=== PATIENT | female | born 1980 | race Two or more races ===

== ENCOUNTER 2018-11-04 18:41 | Emergency (ER) | payer OTHER ==
[2018-11-04] MEDS ORDERED: IBUPROFEN 600 MG TABLET PO ONE (20:26)
[2018-11-04] MEDS ORDERED: ACETAMINOPHEN 325 MG TABLET PO ONE (20:28)
--- NOTE | 2018-11-04 20:32 | ER Document Report ---
ED Medical Screen (RME) - General Chief Complaint: Chest Pain Stated Complaint: CHEST PAIN Time Seen by Provider: 11/04/18 20:25 Notes: Patient is a 38-year-old female who presents to the emergency department with a chief complaint of chest pain. She has been having on and off chest pain for the past week. She describes her pain as a crushing pain that wraps around her back. She was seen at [facility], where she had an x-ray done but no interventions were done for her chest pain. She also states she is short of breath. She denies any fevers. TRAVEL OUTSIDE OF THE [place] IN LAST 30 DAYS: No - Related Data Allergies/Adverse Reactions: No Known Allergies Allergy (Unverified 11/04/18 20:16) Past Medical History Renal/ Medical History: Denies: Hx Peritoneal Dialysis Past Surgical History: Reports: Hx Hysterectomy Physical Exam - Vital signs Vitals: Temp Pulse Resp BP Pulse Ox 98.6 F 82 16 122/86 H 98 11/04/18 19:01 11/04/18 19:01 11/04/18 19:01 11/04/18 19:01 11/04/18 19:01 - Respiratory Breath sounds: Normal - Cardiovascular Rhythm: Regular Murmur: No Notes: Pain reproducible upon palpation. Course - Re-evaluation Re-evalutation: 11/04/18 20:34 Patient's pain is reproducible upon palpation. - Vital Signs Vital signs: Temp Pulse Resp BP Pulse Ox 98.4 F 82 16 105/73 98 11/05/18 00:03 11/04/18 19:01 11/05/18 00:03 11/05/18 00:03 11/05/18 00:03 - Laboratory Result Diagrams: 11/04/18 21:13 11/04/18 21:13 Laboratory results interpreted by me: 11/04/18 21:13 Seg Neutrophils % 39.3 L Lymphocytes % 51.3 H Doctor's Discharge - Discharge Clinical Impression: Chest pain Condition: Good Disposition: HOME, SELF-CARE Additional Instructions: We did blood work looking for evidence of blood clots in your lungs. This blood testing was negative. We also did blood work looking at your heart. This testing was normal as well. I suspect your pain is either related to pleurisy or a strain along the intercostal muscles of the rib cage. Both of these will get worse with taking a deep breath or coughing or sneezing. They will also get worse with certain movements. This coincides with the symptoms you are having. I have prescribed a medicine called Toradol. Do not take other NSAID medicaito ns such as Aspirin, Motrin, Ibuprofen, Aleve, or Advil when taking Toradol. It is okay to take Tylenol. Prescriptions: Ketorolac Tromethamine [Toradol 10 mg Tablet] 10 mg PO Q8HP PRN #12 tablet PRN Reason: Referrals: DOMINIC ANTHONY MD [NO LOCAL MD] - 11/09/18
--- NOTE | 2018-11-04 21:15 | RADIOLOGY REPORT (SQ) ---
XR CHEST 1 VIEW HISTORY: Chest pain. COMPARISON: None. FINDINGS: The cardiomediastinal silhouette is unremarkable. The lungs are clear. No pleural effusion or pneumothorax is identified. IMPRESSION: No acute cardiopulmonary abnormality.
[2018-11-04 21:30] LABS: ABSOLUTE EOSINOPHILS # (AUTO) 0.3 10^3/uL (0.0-0.6); ABSOLUTE LYMPHOCYTES (AUTO) 4.1 10^3/uL (0.5-4.7); ABSOLUTE MONOCYTES (AUTO) 0.5 10^3/uL (0.1-1.4); ABSOLUTE NEUT (AUTO) 3.2 10^3/uL (1.7-8.2); BASOPHILS % (AUTO) 0.4 % (0-2); EOSINOPHILS % (AUTO) 3.3 % (0-6); HEMATOCRIT 41.8 % (36.0-47.0); LYMPHOCYTES % (AUTO) 51.3 % (13-45); MEAN CORPUSCULAR HGB CONC 33.6 g/dL (32.0-36.0); MEAN CORPUSCULAR VOLUME 83 fl (80-97); MONOCYTES % (AUTO) 5.7 % (3-13); PLATELET COUNT 252 10^3/uL (150-450); RED BLOOD COUNT 5.01 10^6/uL (3.72-5.28); RED CELL DISTRIBUTION WIDTH 13.6 % (11.5-14.0); SEGMENTED NEUTROPHILS % (AUTO) 39.3 % (42-78); TOTAL CELLS COUNTED % (AUTO) 100 %
--- NOTE | 2018-11-04 22:04 | ER Document Report ---
ED General - General Chief Complaint: Chest Pain Stated Complaint: CHEST PAIN Time Seen by Provider: 11/04/18 20:25 Notes: Patient is a 30-year-old female who presents because she has been having intermittent chest pain. Says pain is worse with coughing or moving. She went to [facility]. There they did blood work and told everything was fine except for she had evidence of some pleural thickening on chest x-ray and therefore they encouraged [place] for reevaluation and possible CT scan. Patient said she was concerned because I told her she needed a CT scan but that one was not done and therefore she came to the ER for reevaluation of her symptoms. She denies any fevers. No vomiting. No diarrhea. No leg pain or leg swelling. No recent travel outside the country. No recent long trips. TRAVEL OUTSIDE OF THE [place] IN LAST 30 DAYS: No - Related Data Allergies/Adverse Reactions: No Known Allergies Allergy (Unverified 11/04/18 20:16) Past Medical History - Social History Smoking Status: Never Smoker Frequency of alcohol use: None Drug Abuse: None Family History: Reviewed & Not Pertinent Patient has suicidal ideation: No Patient has homicidal ideation: No Renal/ Medical History: Denies: Hx Peritoneal Dialysis Past Surgical History: Reports: Hx Hysterectomy Review of Systems - Review of Systems Notes: My Normal Review Basic REVIEW OF SYSTEMS: CONSTITUTIONAL : Denies fever, chills, or sweats. Denies recent illness. EENT: Denies eye, ear, throat, or mouth pain or symptoms. Denies nasal or sinus congestion. CARDIOVASCULAR: Chest pain RESPIRATORY: Denies cough, cold, or chest congestion. Denies shortness of breath, difficulty breathing, or wheezing. GASTROINTESTINAL: Denies abdominal pain. Denies nausea, vomiting, or diarrhea. GENITOURINARY: Denies difficulty urinating, painful urination, burning, frequency, or blood in urine. MUSCULOSKELETAL: Denies neck or back pain or joint pain or swelling. SKIN: Denies rash or skin lesions. NEUROLOGICAL: Denies altered mental status or loss of consciousness. Denies headache. Denies weakness or paralysis or loss of use of either side. Denies problems with gait or speech. Denies sensory or motor loss. ALL OTHER SYSTEMS REVIEWED AND NEGATIVE. Physical Exam - Vital signs Vitals: Temp Pulse Resp BP Pulse Ox 98.6 F 82 16 122/86 H 98 11/04/18 19:01 11/04/18 19:01 11/04/18 19:01 11/04/18 19:01 11/04/18 19:01 - Notes Notes: General Appearance: Well nourished, alert, cooperative, no acute distress, no obvious discomfort. Well-appearing Vitals: reviewed, See vital signs table. Head: no swelling or tenderness to the head Eyes: PERRL, EOMI, Conjuctiva clear Mouth: No decreasd moisture Chest wall: Some mildly reproducible pain to palpation of chest wall. Lungs: No wheezing, No rales, No rhonci, No accessory muscle use, good air exchange bilaterally. Heart: Normal rate, Regular rythm, No murmur, no rub Abdomen: Normal BS, soft, No rigidity, No abdominal tenderness, No guarding, no rebound, no abdominal masses, no organomegaly Extremities: strength 5/5 in all extremities, good pulses in all extremities, no swelling or tenderness in the extremities, no edema. Skin: warm, dry, appropriate color, no rash Neuro: speech clear, oriented x 3, normal affect, responds appropriately to ques tions. Course - Re-evaluation Re-evalutation: 11/04/18 22:03 EKG is reviewed and interpreted by me. EKG shows sinus rhythm with rate of [address] segment elevation or depression. No ischemic T wave inversions. KS interval, QRS duration, QT intervals are within normal range. Old EKG available for comparison. 11/05/18 09:22 I did obtain a d-dimer. Patient is low risk for PE. Her vital signs are completely normal. She has not had any recent long road trips. She is not having a pain or leg swelling. D-dimer is negative. Patient looks well. I suspect she either has pleurisy or may be some muscular skeletal component to her chest pain. I encouraged her to keep her appointment with follow-up with her doctor on Wednesday. I encouraged her to return to ER if she has fevers, difficulty breathing, worsening pain, or feels unwell. Patient agrees with plan and will be discharged home. Dictation of this chart was performed using voice recognition software; therefore, there may be some unintended grammatical errors. - Vital Signs Vital signs: Temp Pulse Resp BP Pulse Ox 98.4 F 82 16 105/73 98 11/05/18 00:03 11/04/18 19:01 11/05/18 00:03 11/05/18 00:03 11/05/18 00:03 - Laboratory Result Diagrams: 11/04/18 21:13 11/04/18 21:13 Laboratory results interpreted by me: 11/04/18 21:13 Seg Neutrophils % 39.3 L Lymphocytes % 51.3 H Discharge - Discharge Clinical Impression: Chest pain Qualifiers: Chest pain type: unspecified Qualified Code(s): R07.9 - Chest pain, unspecified Condition: Good Disposition: HOME, SELF-CARE Additional Instructions: We did blood work looking for evidence of blood clots in your lungs. This blood testing was negative. We also did blood work looking at your heart. This testing was normal as well. I suspect your pain is either related to pleurisy or a strain along the intercostal muscles of the rib cage. Both of these will g et worse with taking a deep breath or coughing or sneezing. They will also get worse with certain movements. This coincides with the symptoms you are having. I have prescribed a medicine called Toradol. Do not take other NSAID medicaitons such as Aspirin, Motrin, Ibuprofen, Aleve, or Advil when taking Toradol. It is okay to take Tylenol. Prescriptions: Ketorolac Tromethamine [Toradol 10 mg Tablet] 10 mg PO Q8HP PRN #12 tablet PRN Reason: Referrals: DOMINIC ANTHONY MD [NO LOCAL MD] - 11/09/18
[2018-11-04 22:41] LABS: ANION GAP 9 (5-19); BLOOD UREA NITROGEN 14 mg/dL (7-20); CALCIUM 9.9 mg/dL (8.4-10.2); CARBON DIOXIDE 27 mmol/L (22-30); CHLORIDE 104 mmol/L (98-107); GLUCOSE 96 mg/dL (75-110); POTASSIUM 4.3 mmol/L (3.6-5.0); SODIUM 140.2 mmol/L (137-145)
--- NOTE | 2018-11-04 23:02 | EKG REPORT ---
SEVERITY:- NORMAL ECG - SINUS RHYTHM : Confirmed by: Юлия Murillo MD 04-Nov-2018 23:02:11
[2018-11-04] MEDS ORDERED: KETOROLAC TROMETHAMINE 10 MG TABLET PO ONE (23:55)
[2018-11-05 00:07] VITALS: BP 105/73
== END 2018-11-05 00:07 | disposition home or self-care (01) ==
LOC: ER 18:41
DX: R07.9 Chest pain, unspecified (principal)
CPT/HCPCS: 93005; 99285; 36415; 85025; 80048; 84484; 85379; 71045; 93010; J3490

== ENCOUNTER → 2018-11-09 | Outpatient (CLI) | payer OTHER ==
--- NOTE | 2018-11-09 12:18 | RADIOLOGY REPORT (SQ) ---
EXAM DESCRIPTION: HIP BILATERAL COMPLETED DATE/TIME: 11/09/2018 11:51 am REASON FOR STUDY: HIP PAIN (M25.559) J94.9 PLEURAL CONDITION, UNSPECIFIED M25.559 PAIN IN UNSPECIF IED HIP COMPARISON: None. NUMBER OF VIEWS: Two views. TECHNIQUE: AP pelvis and additional frog-leg view of the right and left hips. LIMITATIONS: None. FINDINGS: MINERALIZATION: Normal. PRIMARY HIP: No fracture or dislocation. No worrisome bone lesions. No significant degenerative tigre nge. OPPOSITE HIP: No fracture or dislocation. No worrisome bone lesions. No significant degenerative ch flori. PUBIS AND ISCHIUM: No fracture. PELVIS: No fracture. SACRUM: No fracture or dislocation. No worrisome bone lesions. LOWER LUMBAR SPINE: No fracture or dislocation. No worrisome bone lesions. No significant disc disea se. SOFT TISSUES: No significant findings. Scattered pelvic phleboliths. OTHER: No other significant finding. IMPRESSION: NEGATIVE STUDY OF THE RIGHT AND LEFT HIPS AND PELVIS. NO RADIOGRAPHIC EVIDENCE OF ACUTE INJURY. TECHNICAL DOCUMENTATION: JOB ID: [id number] [employer]- All Rights Reserved Reading location - IP/workstation name: [email or web address]
== END ==
LOC: RAD 10:53
PROVIDERS: ATTEND Internal Medicine
DX: J94.9 Pleural condition, unspecified (principal); M25.559 Pain in unspecified hip
CPT/HCPCS: 73522

== ENCOUNTER → 2018-11-11 | Outpatient (CLI) | payer OTHER ==
--- NOTE | 2018-11-11 08:36 | RADIOLOGY REPORT (SQ) ---
EXAM DESCRIPTION: CT CHEST WITH COMPLETED DATE/TIME: 11/11/2018 8:09 am REASON FOR STUDY: PLEURAL CONDITION, UNSPEC (J94.9) J94.9 PLEURAL CONDITION, UNSPECIFIED COMPARISON: None. TECHNIQUE: CT scan of the chest performed using helical scanning technique with dynamic intravenous contrast injection. Images reviewed with lung, soft tissue and bone windows. Reconstructed coronal and sagittal MPR and MIP images reviewed. All images stored on PACS. All CT scanners at this facility use dose modulation, iterative reconstruction, and/or weight based d osing when appropriate to reduce radiation dose to as low as reasonably achievable (ALARA). [facility]: Dose Right [facility]: CareDose [facility]: Dose Right [facility]: Teradose 4D [facility]: WorkMeIn CONTRAST TYPE AND DOSE: contrast/concentration: Isovue 350.00 mg/ml; Total Contrast Delivered: 80.0 ml; Total Saline Delivered: 55.0 ml RENAL FUNCTION: BUN 14 creatinine 0.77. RADIATION DOSE: CT Rad equipment meets quality standard of care and radiation dose reduction techniq ues were employed. CTDIvol: 17.5 mGy. DLP: 638 mGy-cm. . LIMITATIONS: None. FINDINGS: LUNGS AND PLEURA: No opacities, nodules, masses. No pneumothorax. No effusions. HILAR AND MEDIASTINAL STRUCTURES: No identified masses or abnormal nodes. HEART AND VASCULAR STRUCTURES: No aneurysm or dissection. No central pulmonary emboli. No pericardi al effusion. HARDWARE: None in the chest. UPPER ABDOMEN: Fatty infiltration of the liver. Limited exam. THYROID AND OTHER SOFT TISSUES: No masses. No adenopathy. BONES: No significant finding. OTHER: No other significant finding. IMPRESSION: NORMAL CT OF THE CHEST WITH IV CONTRAST. TECHNICAL DOCUMENTATION: JOB ID: [id number] Quality ID # [id number]: Final reports with documentation of one or more dose reduction techniques (e.g., Au tomated exposure control, adjustment of the mA and/or kV according to patient size, use of iterative reconstruction technique) 2010 [employer]- All Rights Reserved Reading location - IP/workstation name: [email or web address]
== END ==
LOC: RAD 07:40
PROVIDERS: ATTEND Internal Medicine
DX: J94.9 Pleural condition, unspecified (principal); M25.559 Pain in unspecified hip
CPT/HCPCS: 71260

== ENCOUNTER → 2019-03-24 | Outpatient (CLI) | payer OTHER ==
--- NOTE | 2019-03-24 12:11 | RADIOLOGY REPORT (SQ) ---
EXAM DESCRIPTION: U/S NON-OB PELVIS W/O DOP COMPLETED DATE/TIME: 03/24/2019 11:58 am REASON FOR STUDY: LOWER ABDOMINAL PAIN R10.30 LOWER ABDOMINAL PAIN, UNSPECIFIED COMPARISON: None. TECHNIQUE: Dynamic and static grayscale images acquired of the pelvis via transabdominal approach an d recorded on PACS. Additional selected color Doppler and spectral images recorded. LIMITATIONS: None. FINDINGS: UTERUS: The patient has had prior partial hysterectomy. No uterine tissue is identified. ENDOMETRIAL STRIPE: Prior hysterectomy. CERVIX: Prior hysterectomy. RIGHT OVARY AND DOPPLER: There is a 3.7 x 3.3 x 2.4 cm cystic structure in the right adnexae. Possib ly ovarian cyst. LEFT OVARY AND DOPPLER: Not visualized. FREE FLUID: None noted. OTHER: No other significant finding. MEASUREMENTS: RIGHT OVARY: 6.2 x 3.7 x 3.6 cm. LEFT OVARY: Not visualized. IMPRESSION: Right adnexal cystic lesion most likely ovarian in origin. This is measured 3.7 x 3.3 x 2.4 cm. Left ovary an uterus are not identified. TECHNICAL DOCUMENTATION: JOB ID: [id number] [email or web address]- All Rights Reserved Rev-03/18 Reading location - IP/workstation name: [email or web address]
== END ==
LOC: RAD 10:55
PROVIDERS: ATTEND Internal Medicine
DX: R10.30 Lower abdominal pain, unspecified (principal)
CPT/HCPCS: 76856

== ENCOUNTER 2019-06-12 15:03 | Emergency (ER) | payer OTHER ==
--- NOTE | 2019-06-12 17:04 | ER Document Report ---
ED Medical Screen (RME) - General Chief Complaint: Chest Pain Stated Complaint: CHEST PAIN Time Seen by Provider: 06/12/19 16:57 Primary Care Provider: VÍCTOR BARRETT MD [Primary Care Provider] - Follow up as needed Notes: HPI: 39-year-old female here for chest pain that radiates to her back intermittently and becoming more persistent, last week. History of pleurisy in the past and symptoms feel similar. She also states sometimes the pain radiates to her left shoulder. She has some shortness of breath with the pain gets severe and pain with deep breathing. She does have significant family history of cardiac disease with her mother having SC around 55. She has had a hysterectomy. She also endorses a low-grade fever, nausea. No recent stress test. Pt denies any prior personal cardiac history. no syncope. no palpitations. no hx of mi, cva, tia, CHF, or cad. no ripping or tearing sensation. denies any blood thinners. No prior history of blood clots. No recent long distance travel/immobilization, recent surgery, exogenous estrogen use, hemoptysis, history of cancer, or calf pain/swelling. No prior history of arrhythmias. ROS neg to include 10 systems, unless mentioned in the hpi. PE:>>>> PHYSICAL_EXAM: GENERAL_APPEARANCE: well_nourished, alert, cooperative, no_acute_distress, mild_obvious_discomfort. pleasant, middle-aged female, smiling, speaking in full sentences, in no sign of pain or resp distress, VITALS: reviewed, see vital signs table. HEAD: no_swelling\tenderness on the head. normocephalic. atraumatic. no irwin signs. no raccoons eyes. EYES: PERRL, EOMI, conjunctiva_clear. NOSE: no_nasal_discharge. MOUTH: (-)decreased moisture. THROAT: no_tonsilar_inflammation, no_airway_obstruction. no_lymphadenopathy NECK: supple, no_neck_tenderness, full rom. full strength. no meningeal signs. no sign of central cord syndrome. BACK: no midline back_tenderness. There is tenderness palpation over the left trapezius and left rhomboid where there is a spasm noted that reproduces the patient's pain. No overlying skin changes. Negative drop can test. CHEST_WALL: no_chest_tenderness. no overlying skin changes LUNGS: no_wheezing, ctab (-)accessory muscle use, slight decreased air exchange bilateral. HEART: normal_rate, normal_rhythm, ABDOMEN: normal_BS, soft, no_abd_tenderness, (-)guarding, (-)rebound, no distension or peritoneal signs. no cva ttp EXTREMITIES: strength 5/5 in all_extremities, good pulses in all_extremities, no_swelling\tenderness in the extremities, no_edema. full rom. normal gait. good pulses. brisk cap refill. 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 neg quan sign NEURO: motor and sensation intact, cranial nerves 2-12 intact, cerebellar fxn i ntact SKIN: warm, dry, good_color, no_rash. MENTAL_STATUS: speech_clear, oriented_X_3, normal_affect, responds_appropriately to questions. MDM: I have ordered labs and initial work-up and patient will be transferred to the main ER for further work-up. I have greeted and performed a rapid initial assessment of this patient. A comprehensive ED assessment and evaluation of the patient, analysis of test results and completion of medical decision making process will be conducted by an additional ED providers. Documentation achieved through voice recording which my lead to some occasional accidental typographical errors. Extensive efforts have been made to proof read documentation to make sure these are the least as possible Temp Pulse Resp BP Pulse Ox 06/12/19 18:19 14 115/74 100 06/12/19 18:18 10 L 96 06/12/19 15:27 98.7 F 88 16 118/79 97 Category Date Time Status EKG Documentation STAT Care 06/12/19 15:19 Completed CHEST 2 VIEWS [RAD] Stat Exams 06/12/19 17:44 Completed CBC WITH DIFF [HEME] Stat Lab 06/12/19 18:03 Completed COMPREHENSIVE METABOLIC PANEL [CHEM] Stat Lab 06/12/19 18:03 Completed CREATINE KINASE MB [CHEM] Stat Lab 06/12/19 18:03 Completed CREATINE KINASE [CHEM] Stat Lab 06/12/19 18:03 Completed HCG QUALITATIVE, URINE [URIN] Stat Lab 06/12/19 18:03 Completed LIPASE [CHEM] Stat Lab 06/12/19 18:03 Completed TROPONIN I [CHEM] Stat Lab 06/12/19 18:03 Completed URINALYSIS [URIN] Stat Lab 06/12/19 18:03 Completed Ipratropium/Albuterol Sulfate [Duoneb 3 ml Ampul] Med 06/12/19 17:44 Discontinued 3 ml NEB NOW ONE Ketorolac Tromethamine [Toradol Inj/Pf 30 mg/1 ml Sdv] Med 06/12/19 17:44 Discontinued 30 mg IV NOW ONE Methocarbamol [Robaxin 500 mg Tablet] Med 06/12/19 17:44 Discontinued 1,000 mg PO NOW ONE Ondansetron HCl/Pf [Zofran Inj/Pf 4 mg/2 ml Sdv] Med 06/12/19 17:44 Discontinued 4 mg IV NOW ONE EKG ER ONLY [ER] Stat Oth 06/12/19 Active Nebulizer Therapy Routine [RESPCARE] NOW Ther 06/12/19 17:44 Active TRAVEL OUTSIDE OF THE [place] IN LAST 30 DAYS: No - Related Data Allergies/Adverse Reactions: phentermine Allergy (Verified 06/12/19 16:33) Past Medical History - Social History Chew tobacco use (# tins/day): No Frequency of alcohol use: None Drug Abuse: None Renal/ Medical History: Denies: Hx Peritoneal Dialysis Past Surgical History: Reports: Hx Hysterectomy Physical Exam - Vital signs Vitals: Temp Pulse Resp BP Pulse Ox 98.7 F 88 16 118/79 97 06/12/19 15:27 06/12/19 15:27 06/12/19 15:27 06/12/19 15:27 06/12/19 15:27 Course - Vital Signs Vital signs: Temp Pulse Resp BP Pulse Ox 98.7 F 88 14 115/74 100 06/12/19 15:27 06/12/19 15:27 06/12/19 18:19 06/12/19 18:19 06/12/19 18:19 - Laboratory Result Diagrams: 06/12/19 18:03 06/12/19 18:03 Laboratory results interpreted by me: 06/12/19 18:03 Urine Blood SMALL H Doctor's Discharge - Discharge Referrals: VÍCTOR BARRETT MD [Primary Care Provider] - Follow up as needed
[2019-06-12] MEDS ORDERED: ONDANSETRON HCL INJ/PF 4 MG/2 ML SDV IV ONE (17:44)
[2019-06-12] MEDS ORDERED: KETOROLAC TROMETHAMINE INJ/PF 30 MG/1 ML SDV IV ONE (17:44)
[2019-06-12] MEDS ORDERED: IPRATROPIUM/ALBUTEROL 0.5-2.5 MG/3 ML AMPUL NEB ONE (17:44)
[2019-06-12] MEDS ORDERED: METHOCARBAMOL 500 MG TABLET PO ONE (17:44)
[2019-06-12 18:16] LABS: APPEARANCE,URINE CLEAR; BILIRUBIN,URINE NEGATIVE (NEGATIVE); COLOR,URINE YELLOW; GLUCOSE, URINE NEGATIVE (NEGATIVE); KETONES,URINE NEGATIVE (NEGATIVE); LEUKOCYTE ESTERASE,URINE NEGATIVE (NEGATIVE); NITRITE,URINE NEGATIVE (NEGATIVE); PROTEIN,URINE NEGATIVE (NEGATIVE); URINE SPECIFIC GRAVITY 1.023; UROBILINOGEN,URINE NEGATIVE mg/dL (<2.0)
[2019-06-12 18:20] LABS: ABSOLUTE EOSINOPHILS # (AUTO) 0.2 10^3/uL (0.0-0.6); ABSOLUTE LYMPHOCYTES (AUTO) 3.4 10^3/uL (0.5-4.7); ABSOLUTE MONOCYTES (AUTO) 0.4 10^3/uL (0.1-1.4); ABSOLUTE NEUT (AUTO) 4.4 10^3/uL (1.7-8.2); BASOPHILS % (AUTO) 0.2 % (0-2); EOSINOPHILS % (AUTO) 2.2 % (0-6); HEMATOCRIT 41.3 % (36.0-47.0); HEMOGLOBIN 13.7 g/dL (12.0-15.5); LYMPHOCYTES % (AUTO) 40.7 % (13-45); MEAN CORPUSCULAR HEMOGLOBIN 27.5 pg (27.0-33.4); MEAN CORPUSCULAR HGB CONC 33.1 g/dL (32.0-36.0); MEAN CORPUSCULAR VOLUME 83 fl (80-97); MONOCYTES % (AUTO) 5.2 % (3-13); PLATELET COUNT 230 10^3/uL (150-450); RED BLOOD COUNT 4.97 10^6/uL (3.72-5.28); RED CELL DISTRIBUTION WIDTH 13.6 % (11.5-14.0); SEGMENTED NEUTROPHILS % (AUTO) 51.7 % (42-78); TOTAL CELLS COUNTED % (AUTO) 100 %; WHITE BLOOD COUNT 8.4 10^3/uL (4.0-10.5)
--- NOTE | 2019-06-12 18:33 | RADIOLOGY REPORT (SQ) ---
EXAM DESCRIPTION: CHEST 2 VIEWS COMPLETED DATE/TIME: 06/12/2019 6:02 pm REASON FOR STUDY: cp COMPARISON: 11/04/2018 EXAM PARAMETERS: NUMBER OF VIEWS: two views TECHNIQUE: Digital Frontal and Lateral radiographic views of the chest acquired. RADIATION DOSE: NA LIMITATIONS: none FINDINGS: LUNGS AND PLEURA: No opacities, masses or pneumothorax. No pleural effusion. MEDIASTINUM AND HILAR STRUCTURES: No masses or contour abnormalities. HEART AND VASCULAR STRUCTURES: Heart normal size. No evidence for failure. BONES: No acute findings. HARDWARE: None in the chest. OTHER: No other significant finding. IMPRESSION: NO ACUTE RADIOGRAPHIC FINDING IN THE CHEST. TECHNICAL DOCUMENTATION: JOB ID: [id number] [employer]- All Rights Reserved Reading location - IP/workstation name: [email or web address]
[2019-06-12 18:39] LABS: ALBUMIN 4.5 g/dL (3.5-5.0); ALKALINE PHOSPHATASE 50 U/L (38-126); ANION GAP 12 (5-19); ASPARTATE AMINO TRANSFERASE 17 U/L (14-36); BILIRUBIN,DIRECT 0.3 mg/dL (0.0-0.4); BILIRUBIN,TOTAL 0.8 mg/dL (0.2-1.3); BLOOD UREA NITROGEN 14 mg/dL (7-20); CALCIUM 9.9 mg/dL (8.4-10.2); CARBON DIOXIDE 28 mmol/L (22-30); CHLORIDE 103 mmol/L (98-107); GLUCOSE 101 mg/dL (75-110); POTASSIUM 4.3 mmol/L (3.6-5.0); TOTAL PROTEIN 7.8 g/dL (6.3-8.2)
[2019-06-12 18:52] LABS: CREATINE KINASE MB < 0.22 ng/mL (<4.55); TROPONIN I < 0.012 ng/mL
--- NOTE | 2019-06-12 19:53 | ER Document Report ---
ED General - General Chief Complaint: Chest Pain Stated Complaint: CHEST PAIN Time Seen by Provider: 06/12/19 16:57 Primary Care Provider: VÍCTOR BARRETT MD [Primary Care Provider] - Follow up as needed TRAVEL OUTSIDE OF THE [place] IN LAST 30 DAYS: No - HPI Notes: 39-year-old female presents with chest pain. Patient describes onset this morning and prolonged chest pain in her left anterolateral chest as well as in her back. Sharp, worse with deep inspiration. She had pleurisy in the past and feels similar. No fever, chills or sweats. No cough. No significant dyspnea. No lower extremity pain or swelling. No personal or family history of venous thromboembolism. Moderate intensity, gradual onset, nonradiating, sometimes worse motion as well. No other modifying factors, no other associated symptoms, no other provocative or palliative factors. - Related Data Allergies/Adverse Reactions: phentermine Allergy (Verified 06/12/19 16:33) Past Medical History - Social History Smoking Status: Never Smoker Chew tobacco use (# tins/day): No Frequency of alcohol use: None Drug Abuse: None Family History: Reviewed & Not Pertinent Patient has suicidal ideation: No Patient has homicidal ideation: No - Medical History Medical History: Other Notes: Includes pleurisy Renal/ Medical History: Denies: Hx Peritoneal Dialysis Past Surgical History: Reports: Hx Breast Surgery - reduction 2009, Hx Hysterectomy Review of Systems - Review of Systems Notes: Review of systems as in the history of present illness, otherwise negative x 10 systems. Physical Exam - Vital signs Vitals: Temp Pulse Resp BP Pulse Ox 98.7 F 88 16 118/79 97 06/12/19 15:27 06/12/19 15:27 06/12/19 15:27 06/12/19 15:27 06/12/19 15:27 - Notes Notes: General: Well developed . HEENT: Normocephalic, atraumatic. Pupils equal round reactive to light. No JVD. Chest: No trauma. Respiratory: Good air exchange, normal excursion. Cardiac: Regular rhythm. No murmurs or gallops. Abdomen: Soft, benign. Nondistended. Nontender. Back: No asymmetry or gross abnormality. Motor: Grossly normal power and tone. Neurologic: Alert, nonfocal. Cranial nerves II-12 are intact. Sensation intact. Vascular: Well perfused. Normal peripheral pulses. Skin: No petechiae or purpura. Course - Vital Signs Vital signs: Temp Pulse Resp BP Pulse Ox 98.7 F 88 12 112/59 L 99 06/12/19 15:27 06/12/19 15:27 06/12/19 19:01 06/12/19 19:00 06/12/19 19:01 - Laboratory Result Diagrams: 06/12/19 18:03 06/12/19 18:03 Laboratory results interpreted by me: 06/12/19 18:03 Urine Blood SMALL H - EKG Interpretation by Mi EKG shows normal: Sinus rhythm Rate: Normal Rhythm: NSR Additional EKG results interpreted by me: 06/12/19 19:52 No acute ischemic changes - Transfer of Care Notes: 06/12/19 19:51 Patient was evaluated by the [facility] provider prior to my evaluation. Studies / interventions have been ordered by this provider and may still be pending. 39-year-old female presents with somewhat atypical chest pain that is pleuritic. Of note, she is PERC negative. No indication for further work-up of pulmonary embolism. Patient is low risk for ACS, has a heart score of 0. Given the prolonged nature of her symptoms, atypical presentation, I think a single negative troponin makes posttest probability acceptably low for ACS. Labs reviewed, CBC unremarkable, chemistry unremarkable, troponin normal. Chest x-ray unremarkable. EKG shows no ischemic changes. Patient be treated with NSAIDs, outpatient follow-up, return if worsening. Advise follow-up closely with a primary care physician. Discharge - Discharge Clinical Impression: Chest pain Qualifiers: Chest pain type: unspecified Qualified Code(s): R07.9 - Chest pain, unspecified Condition: Stable Disposition: HOME, SELF-CARE Instructions: Chest Pain of Unclear Cause ([facility]) Referrals: VÍCTOR BARRETT MD [Primary Care Provider] - Follow up tomorrow
[2019-06-12 20:02] VITALS: BP 105/64
--- NOTE | 2019-06-13 09:48 | EKG REPORT ---
SEVERITY:- NORMAL ECG - SINUS RHYTHM : Confirmed by: Frank Menjivar 13-Jun-2019 09:47:05
== END 2019-06-12 20:08 | disposition home or self-care (01) ==
LOC: ER 15:03
DX: R07.9 Chest pain, unspecified (principal); Z90.710 Acquired absence of both cervix and uterus
CPT/HCPCS: 93005; 36415; 82553; 82550; 83690; 85025; 81025; 80053; 81001; 84484; 71046; 93010; J1885; J2405; J7620; 94640; 96374; 96375; 99285

== ENCOUNTER 2019-11-30 18:32 | Emergency (ER) | payer OTHER ==
--- NOTE | 2019-11-30 18:43 | ER Document Report ---
ED Medical Screen (RME) - General Chief Complaint: Dizziness Stated Complaint: DIZZY,WEAKNESS Time Seen by Provider: 11/30/19 18:40 Primary Care Provider: VÍCTOR BARRETT MD [Primary Care Provider] - Follow up as needed TRAVEL OUTSIDE OF THE [place] IN LAST 30 DAYS: No - HPI Notes: 11/30/19 19:13 39-year-old female to the emergency department with complaints of dizziness and weakness that began this morning. She states is been getting progressively worse throughout the day. She states that she feels like she might pass out. She states that she has some mild facial tingling but she cannot localize the tingling. She denies any chest pain, shortness of breath, leg swelling. She does admit to headache. She states that the headache started after the dizziness started. Denies any fevers or chills. Denies a cough. On brief medical screening exam, Neuro findings: No facial droop, cranial nerves II through XII are intact. No pronator drift. Normal [id number]-[id number] bilaterally. No leg drift. Normal [id number] bilaterally. Patient is alert and oriented x4. She has poor eye contact. She states she feels like she is going to pass out. After no gross focal abnormality found on neurological exam. Patient closes her eyes and ask like she may pass out. She never does pass out. Apparently in CT she was able to stand up and pivot onto the CT table. I performed a brief medical screening exam on the patient and determined that she will need further evaluation and management by main side provider. I have placed orders to help expedite her care. She will be bedded into bed 18. - Related Data Allergies/Adverse Reactions: phentermine Allergy (Verified 06/12/19 16:33) Past Medical History Renal/ Medical History: Denies: Hx Peritoneal Dialysis Past Surgical History: Reports: Hx Breast Surgery - reduction 2009, Hx Hysterectomy Course - Laboratory Result Diagrams: 11/30/19 19:00 11/30/19 19:00 Doctor's Discharge - Discharge Referrals: VÍCTOR BARRETT MD [Primary Care Provider] - Follow up as needed
--- NOTE | 2019-11-30 18:57 | RADIOLOGY REPORT (SQ) ---
EXAM DESCRIPTION: CT HEAD WITHOUT COMPLETED DATE/TIME: 11/30/2019 6:46 pm REASON FOR STUDY: dizziness, near syncope COMPARISON: None. TECHNIQUE: Axial images acquired through the brain without intravenous contrast. Images reviewed wi th bone, brain and subdural windows. Additional sagittal and coronal reconstructions were generated. Images stored on PACS. All CT scanners at this facility use dose modulation, iterative reconstruction, and/or weight based d osing when appropriate to reduce radiation dose to as low as reasonably achievable (ALARA). [facility]: Dose Right [facility]: CareDose [facility]: Dose Right [facility]: Teradose 4D [facility]: Smart [email or web address] RADIATION DOSE: CT Rad equipment meets quality standard of care and radiation dose reduction techniq ues were employed. CTDIvol: 53.2 mGy. DLP: 1097 mGy-cm. mGy. LIMITATIONS: None. FINDINGS: VENTRICLES: Normal size and contour. CEREBRUM: No masses. No hemorrhage. No midline shift. No evidence for acute infarction. Normal gra y/white matter differentiation. No areas of low density in the white matter. CEREBELLUM: No masses. No hemorrhage. No alteration of density. No evidence for acute infarction. EXTRAAXIAL SPACES: No fluid collections. No masses. ORBITS AND GLOBE: No intra- or extraconal masses. Normal contour of globe without masses. CALVARIUM: No fracture. PARANASAL SINUSES: No fluid or mucosal thickening. SOFT TISSUES: No mass or hematoma. OTHER: No other significant finding. IMPRESSION: NORMAL BRAIN CT WITHOUT CONTRAST. EVIDENCE OF ACUTE STROKE: NO. COMMENT: Quality ID # [id number]: Final reports with documentation of one or more dose reduction techniques (e.g., Automated exposure control, adjustment of the mA and/or kV according to patient size, use of iterative reconstruction technique) TECHNICAL DOCUMENTATION: JOB ID: [id number] [employer]- All Rights Reserved Reading location - IP/workstation name: [email or web address]
--- NOTE | 2019-11-30 18:58 | RADIOLOGY REPORT (SQ) ---
EXAM DESCRIPTION: CHEST SINGLE VIEW COMPLETED DATE/TIME: 11/30/2019 6:47 pm REASON FOR STUDY: near syncope COMPARISON: 06/12/2019 EXAM PARAMETERS: NUMBER OF VIEWS: One view. TECHNIQUE: Single frontal radiographic view of the chest acquired. RADIATION DOSE: NA LIMITATIONS: None. FINDINGS: LUNGS AND PLEURA: No opacities, masses or pneumothorax. No pleural effusion. MEDIASTINUM AND HILAR STRUCTURES: No masses. Contour normal. HEART AND VASCULAR STRUCTURES: Heart normal in size. Normal vasculature. BONES: No acute findings. HARDWARE: None in the chest. OTHER: No other significant finding. IMPRESSION: NO ACUTE RADIOGRAPHIC FINDING IN THE CHEST. TECHNICAL DOCUMENTATION: JOB ID: [id number] [employer]- All Rights Reserved Reading location - IP/workstation name: [email or web address]
[2019-11-30 19:20] LABS: ABSOLUTE EOSINOPHILS # (AUTO) 0.2 10^3/uL (0.0-0.6); ABSOLUTE LYMPHOCYTES (AUTO) 3.5 10^3/uL (0.5-4.7); ABSOLUTE MONOCYTES (AUTO) 0.4 10^3/uL (0.1-1.4); ABSOLUTE NEUT (AUTO) 3.6 10^3/uL (1.7-8.2); BASOPHILS % (AUTO) 0.3 % (0-2); EOSINOPHILS % (AUTO) 2.4 % (0-6); HEMATOCRIT 41.7 % (36.0-47.0); HEMOGLOBIN 14.1 g/dL (12.0-15.5); LYMPHOCYTES % (AUTO) 45.6 % (13-45); MEAN CORPUSCULAR HEMOGLOBIN 28.3 pg (27.0-33.4); MEAN CORPUSCULAR HGB CONC 33.8 g/dL (32.0-36.0); MEAN CORPUSCULAR VOLUME 84 fl (80-97); MONOCYTES % (AUTO) 4.9 % (3-13); PLATELET COUNT 222 10^3/uL (150-450); RED BLOOD COUNT 4.99 10^6/uL (3.72-5.28); RED CELL DISTRIBUTION WIDTH 13.8 % (11.5-14.0); SEGMENTED NEUTROPHILS % (AUTO) 46.8 % (42-78); TOTAL CELLS COUNTED % (AUTO) 100 %; WHITE BLOOD COUNT 7.8 10^3/uL (4.0-10.5)
[2019-11-30 19:38] LABS: ALBUMIN 4.4 g/dL (3.5-5.0); ALKALINE PHOSPHATASE 53 U/L (38-126); ANION GAP 11 (5-19); ASPARTATE AMINO TRANSFERASE 26 U/L (14-36); BILIRUBIN,DIRECT 0.2 mg/dL (0.0-0.4); BILIRUBIN,TOTAL 0.6 mg/dL (0.2-1.3); BLOOD UREA NITROGEN 18 mg/dL (7-20); CALCIUM 9.7 mg/dL (8.4-10.2); CARBON DIOXIDE 28 mmol/L (22-30); CHLORIDE 101 mmol/L (98-107); GLUCOSE 100 mg/dL (75-110); POTASSIUM 3.8 mmol/L (3.6-5.0); TOTAL PROTEIN 7.7 g/dL (6.3-8.2)
[2019-11-30 20:50] LABS: APPEARANCE,URINE SLIGHTLY-CLOUDY; BILIRUBIN,URINE NEGATIVE (NEGATIVE); COLOR,URINE YELLOW; GLUCOSE, URINE NEGATIVE (NEGATIVE); KETONES,URINE TRACE mg/dL (NEGATIVE); LEUKOCYTE ESTERASE,URINE NEGATIVE (NEGATIVE); NITRITE,URINE POSITIVE (NEGATIVE); PROTEIN,URINE NEGATIVE (NEGATIVE); URINE SPECIFIC GRAVITY 1.023; UROBILINOGEN,URINE NEGATIVE mg/dL (<2.0)
[2019-11-30 21:53] LABS: URINE AMPHETAMINES SCREEN NEGATIVE; URINE BARBITURATES SCREEN NEGATIVE; URINE BENZODIAZEPINES SCREEN NEGATIVE; URINE COCAINE SCREEN NEGATIVE; URINE MARIJUANA (THC) SCREEN NEGATIVE; URINE METHADONE SCREEN NEGATIVE; URINE PHENCYCLIDINE SCREEN NEGATIVE
[2019-11-30] MEDS ORDERED: CEFTRIAXONE 1 GM/D5W RTU 1 GM/50 ML RTUPB IV ONE (22:33)
--- NOTE | 2019-11-30 22:37 | ER Document Report ---
ED General - General Chief Complaint: Dizziness Stated Complaint: DIZZY,WEAKNESS Time Seen by Provider: 11/30/19 18:40 Primary Care Provider: VÍCTOR BARRETT MD [Primary Care Provider] - Follow up as needed TRAVEL OUTSIDE OF THE [place] IN LAST 30 DAYS: No - HPI Patient complains to provider of: weakness/ lightheadedness Onset: This morning Onset/Duration: Gradual Context: 39 year old female arrives with lightheadedness and weakness along with diffuse myalgias and weakness. She has a h/o fibromyalgia diagnosed in the last 6 months and hurts diffusely. No chest pain or sob. No fever or chills. No rash. Also headache today across top of head. This headache came on gradually and is similar to headaches she has had since her diagnosis of fibromyalgia. Associated symptoms: None Exacerbated by: Denies Relieved by: Denies - Related Data Allergies/Adverse Reactions: phentermine Allergy (Verified 06/12/19 16:33) Past Medical History - Social History Smoking Status: Never Smoker Chew tobacco use (# tins/day): No Frequency of alcohol use: None Drug Abuse: None Family History: Reviewed & Not Pertinent Patient has suicidal ideation: No Patient has homicidal ideation: No Renal/ Medical History: Denies: Hx Peritoneal Dialysis Past Surgical History: Reports: Hx Breast Surgery - reduction 2009, Hx Hysterectomy Review of Systems - Review of Systems Constitutional: No symptoms reported EENT: No symptoms reported Cardiovascular: No symptoms reported Respiratory: No symptoms reported Gastrointestinal: No symptoms reported Genitourinary: No symptoms reported Female Genitourinary: No symptoms reported Musculoskeletal: No symptoms reported Skin: No symptoms reported Hematologic/Lymphatic: No symptoms reported Neurological/Psychological: No symptoms reported Physical Exam - Vital signs Vitals: Resp 19 11/30/19 18:56 Interpretation: Normal - General General appearance: Appears well, Alert - HEENT Head: Normocephalic, Atraumatic Eyes: Normal Pupils: PERRL - Respiratory Respiratory status: No respiratory distress Chest status: Nontender Breath sounds: Normal Chest palpation: Normal - Cardiovascular Rhythm: Regular Heart sounds: Normal auscultation Murmur: No - Abdominal Inspection: Normal Distension: No distension Bowel sounds: Normal Tenderness: Nontender Organomegaly: No organomegaly - Back Back: Normal, Nontender - Extremities General upper extremity: Normal inspection, Nontender, Normal color, Normal ROM, Normal temperature General lower extremity: Normal inspection, Nontender, Normal color, Normal ROM, Normal temperature, Normal weight bearing. No: Emmett's sign - Neurological Neuro grossly intact: Yes Cognition: Normal Orientation: AAOx4 Karel Coma Scale Eye Opening: Spontaneous Karel Coma Scale Verbal: Oriented Karel Coma Scale Motor: Obeys Commands [place] Coma Scale Total: 15 Speech: Normal Motor strength normal: LUE, RUE, LLE, RLE Sensory: Normal - Psychological Associated symptoms: Normal affect, Normal mood - Skin Skin Temperature: Warm Skin Moisture: Dry Skin Color: Normal Course - Vital Signs Vital signs: Temp Pulse Resp BP Pulse Ox 98.2 F 16 132/73 H 96 11/30/19 23:14 11/30/19 23:01 11/30/19 23:00 11/30/19 23:01 - Laboratory Result Diagrams: 11/30/19 19:00 11/30/19 19:00 Laboratory results interpreted by me: 11/30/19 11/30/19 19:00 20:25 Lymph % (Auto) 45.6 H Urine Ketones TRACE H Urine Blood SMALL H Urine Nitrite POSITIVE H - Diagnostic Test Radiology reviewed: Reports reviewed - EKG Interpretation by Me EKG shows normal: Sinus rhythm Rate: Normal Rhythm: NSR - NSR Nl [place] [address] elevation or depression my interpretation. Discharge - Discharge Clinical Impression: Weakness, Lightheadedness, UTI (urinary tract infection) Condition: Good Disposition: HOME, SELF-CARE Instructions: Antinausea Medication ([facility]), Dizziness ([facility]), Tension Headache ([facility]) Additional Instructions: See your doctor in follow up. Rest. Take your medicine as directed. Please return here for any problems or any concerns. Prescriptions: Diphenhydramine HCl [Benadryl Inj 50 mg/1 ml Vial] 25 mg IV NOW #1 vial Cephalexin Monohydrate [Keflex 500 mg Capsule] 500 mg PO TID #15 capsule Metoclopramide HCl [Reglan Pf Inj 10 Mg/2 Ml Sdv] 5 mg IVP NOW #1 vial Ketorolac Tromethamine [Toradol Inj 60 Mg/2 Ml Vial] 30 mg IV NOW #1 ml Referrals: VÍCTOR BARRETT MD [Primary Care Provider] - Follow up as needed
[2019-11-30] MEDS ORDERED: METOCLOPRAMIDE HCL INJ/PF 10 MG/2 ML SDV IV ONE (23:16)
[2019-11-30] MEDS ORDERED: KETOROLAC TROMETHAMINE INJ/PF 30 MG/1 ML SDV IV ONE (23:16)
[2019-11-30] MEDS ORDERED: DIPHENHYDRAMINE HCL 50 MG/ML VIAL IV ONE (23:17)
[2019-12-01 00:35] VITALS: BP 122/62
--- NOTE | 2019-12-01 13:07 | EKG REPORT ---
SEVERITY:- ABNORMAL ECG - SINUS RHYTHM : Confirmed by: Frank Menjivar 01-Dec-2019 13:06:12
== END 2019-12-01 00:35 | disposition home or self-care (01) ==
LOC: ER 18:32
DX: N39.0 Urinary tract infection, site not specified (principal); R53.1 Weakness; R42 Dizziness and giddiness; M79.10 Myalgia, unspecified site; Z90.710 Acquired absence of both cervix and uterus
CPT/HCPCS: 93005; 99284; 96375; 96365; 36415; 87040; 82550; 83735; 84443; 84703; 85025; 87077; 80053; 81001; 84484; 87186; 80307; 87150 ×26; 71045; 70450; 93010; J1200; J1885; J2765; J0696

== ENCOUNTER → 2020-01-11 | Outpatient (CLI) | payer OTHER ==
--- NOTE | 2020-01-11 18:42 | RADIOLOGY REPORT (SQ) ---
EXAM DESCRIPTION: CT ABD/PELVIS WITH IV ORAL COMPLETED DATE/TIME: 01/11/2020 6:20 pm REASON FOR STUDY: R10.32 LEFT LOWER QUADRANT PAIN R10.32 LEFT LOWER QUADRANT PAIN COMPARISON: CT chest 11/11/2018 TECHNIQUE: CT scan of the abdomen and pelvis performed using helical scanning technique with dynamic intravenous contrast injection. Patient drank oral contrast. Images reviewed with lung, soft tissue , and bone windows. Reconstructed coronal and sagittal MPR images reviewed. Delayed images for evalua tion of the urinary system also acquired. All images stored on PACS. All CT scanners at this facility use dose modulation, iterative reconstruction, and/or weight based d osing when appropriate to reduce radiation dose to as low as reasonably achievable (ALARA). [facility]: Dose Right [facility]: CareDose [facility]: Dose Right [facility]: Teradose 4D [facility]: [employer] CONTRAST TYPE AND DOSE: contrast/concentration: Isovue 350.00 mg/ml; Total Contrast Delivered: 99.0 ml; Total Saline Delivered: 46.9 ml RENAL FUNCTION: None required. The patient is less than 50 years old. RADIATION DOSE: CT Rad equipment meets quality standard of care and radiation dose reduction techniq ues were employed. CTDIvol: 17.5 - 19.9 mGy. DLP: 2154 mGy-cm.. LIMITATIONS: None. FINDINGS: LOWER CHEST: No significant findings. No nodules or infiltrates. LIVER: Normal size. No masses. No dilated ducts. Low attenuation from fatty infiltration SPLEEN: Normal size. No focal lesions. PANCREAS: No masses. No significant calcifications. No adjacent inflammation or peripancreatic fluid collections. Pancreatic duct not dilated. GALLBLADDER: No identified stones by CT criteria. No inflammatory changes to suggest cholecystitis. ADRENAL GLANDS: No significant masses or asymmetry. RIGHT KIDNEY AND URETER: No solid masses. No significant calcifications. No hydronephrosis or hyd roureter. LEFT KIDNEY AND URETER: No solid masses. 5 mm left lower pole intrarenal nonobstructive stone, 400 Hounsfield units No hydronephrosis or hydroureter. AORTA AND VESSELS: No aneurysm. No dissection. Renal arteries, SMA, celiac without stenosis. RETROPERITONEUM: No retroperitoneal adenopathy, hemorrhage or masses. BOWEL AND PERITONEAL CAVITY: Patient drank oral contrast. No masses or inflammatory changes. No free fluid or peritoneal masses. APPENDIX: Normal. PELVIS: No mass. No free fluid. Normal bladder. Post hysterectomy. Normal size ovaries. ABDOMINAL WALL: No masses. No hernias. BONES: No significant or acute findings. OTHER: No other significant finding. IMPRESSION: NO SIGNIFICANT OR ACUTE FINDING IN THE ABDOMEN OR PELVIS ON CT SCAN WITH IV CONTRAST. TECHNICAL DOCUMENTATION: JOB ID: [id number] Quality ID # [id number]: Final reports with documentation of one or more dose reduction techniques (e.g., Au tomated exposure control, adjustment of the mA and/or kV according to patient size, use of iterative reconstruction technique) 2010 [employer]- All Rights Reserved Reading location - IP/workstation name: [email or web address]
== END ==
LOC: RAD 15:31
PROVIDERS: ATTEND Internal Medicine
DX: N20.0 Calculus of kidney (principal); R10.32 Left lower quadrant pain
CPT/HCPCS: 74177